=== PATIENT | female | born 1970 | race American Indian/Alaskan Native ===

== ENCOUNTER 2016-12-19 07:45 | Day surgery (SDC) | payer OTHER ==
[~2016-12-19 07:45] MED LIST: Clindamycin Phosphate 600 MG in Sodium Chloride 0.9% 100 ML IV ONE; Lactated Ringers 1,000 ML IV SCH; Sodium Chloride 0.9% 10 ML Syringe FLUSH PRN
[2016-12-19] MEDS ORDERED: Ondansetron 4 MG/2 ML SDV IV ONE (07:46)
[2016-12-19] MEDS ORDERED: Dexamethasone 4 MG/ML SDV IV ONE (07:46)
[2016-12-19] MEDS ORDERED: Propofol 200 MG/20 ML SDV IV ONE (07:46)
[2016-12-19] MEDS ORDERED: Lidocaine 1% 30 ML SDV INJECT ONE ×3 (07:46→10:31)
[2016-12-19] MEDS ORDERED: Lidocaine 1% 10 ML MDV INJECT ONE (07:46)
[2016-12-19] MEDS ORDERED: ePHEDrine 50 MG/ML SDV IV ONE (07:46)
[2016-12-19] MEDS ORDERED: fentaNYL 100 MCG/2 ML SDV IV ONE (07:46)
[2016-12-19] MEDS ORDERED: Bupivacaine 0.5% 10 ML SDV INJECT ONE ×3 (07:46→10:31)
[2016-12-19] MEDS ORDERED: Midazolam 1 MG/ML 2 ML SDV IV ONE (07:46)
[2016-12-19] MEDS ORDERED: Ketorolac 30 MG/ML SDV IVPUSH ONE (07:46)
[2016-12-19] MEDS ORDERED: Sodium Chloride 0.9% 10 ML Syringe FLUSH PRN (08:00)
[2016-12-19] MEDS ORDERED: Lidocaine 1% 30 ML SDV ONE (08:10)
[2016-12-19] MEDS ORDERED: Bupivacaine 0.5% 10 ML SDV ONE (08:10)
[2016-12-19] MEDS ORDERED: Sodium Chloride 0.9% 100 ML ONE (08:42)
[2016-12-19] MEDS ORDERED: Clindamycin Phosphate 600 MG/4 ML SDV ONE (08:42)
[2016-12-19] MEDS ORDERED: Midazolam 1 MG/ML 2 ML SDV ONE (08:55)
[2016-12-19] MEDS ORDERED: fentaNYL 100 MCG/2 ML SDV ONE (08:55)
[2016-12-19] MEDS ORDERED: Ondansetron 4 MG/2 ML SDV ONE (08:55)
[2016-12-19] MEDS ORDERED: Propofol 200 MG/20 ML SDV ONE (08:56)
[2016-12-19] MEDS ORDERED: Dexamethasone 4 MG/ML SDV ONE (08:56)
[2016-12-19] MEDS ORDERED: Lidocaine 1% 50 MG/5 ML Syringe ONE (08:56)
[2016-12-19] MEDS ORDERED: Ketorolac 30 MG/ML SDV ONE (08:56)
[2016-12-19] MEDS ORDERED: HYDROmorphone 1 MG/ML Syringe IVPUSH ONE (11:05)
[2016-12-19] MEDS ORDERED: Acetaminophen/oxyCODONE 325-5 MG Tab PO PRN (11:09)
--- NOTE | 2016-12-19 11:12 | PCM.OPNOTE ---
- General Post-Op/Procedure Note Date of Surgery/Procedure: 12/19/16 Operative Procedure(s): left foot chevron bunionectomy Pre Op Diagnosis: left foot painful bunion Post-Op Diagnosis: benito Anesthesia Technique: Local, MAC Primary Surgeon: Cira Guillen Anesthesia Provider: Dominic Smith EBL in mLs: 5 Complications: none Condition: Good Free Text/Narrative:: Pt tolerated procedure well and was transported to pacu with vss and vascular status intact to left foot. TT 56 mins. gisele 3.0 cannulated screws placed.
[2016-12-19 12:26] VITALS: BP 137/79
--- NOTE | 2016-12-19 20:53 | OR ---
DATE: 12/19/2016 PREOPERATIVE DIAGNOSIS: Left foot painful bunion. POSTOPERATIVE DIAGNOSIS: Left foot painful bunion. PROCEDURE PERFORMED: Left foot first metatarsal osteotomy/bunionectomy. ANESTHESIA: Local MAC with preoperative local block of 10 mL of 1:1 mixture of 1% lidocaine plain and 0.5% Marcaine plain. ESTIMATED BLOOD LOSS: Minimal. SPECIMEN: None. COMPLICATIONS: None. INDICATIONS: Cait is a 46-year-old female, who presents with painful bunions, worse on the left foot. She has been dealing with the painful bunions for many years now and they are gradually worsening. I have seen her in the past and we have tried wider shoes, activity modifications, bunion splints and padding along with toe spacers with no relief. She has also tried some inserts. She was also seen by a ends down checker out of [facility], who referred her back to me for surgical correction. X-rays from [facility] sent on a disc here reveal intermetatarsal angle of the left foot of 9 degrees. There is some component of metatarsus adductus present. There is a short 1st ray compared to the 2nd and 3rd. The patient voiced good understanding of the proposed procedure and possible complications, and elects to have the surgery at this time. DESCRIPTION OF THE PROCEDURE: The patient was taken to the operating room, lying in supine position. After adequate anesthesia induction as described above, the left foot was prepped and draped in the usual sterile fashion. A pneumatic ankle tourniquet was inflated to 225 mmHg. Attention was then directed to the dorsum of the 1st metatarsophalangeal joint, where an approximately 6 cm linear incision was made. Sharp and blunt dissection was performed down to the level of the joint capsule with care to gently retract all neurovascular bundles. An inverted L capsulotomy was made and the capsule reflected to expose the distal 1st metatarsal. A hypertrophic medial eminence was noted at this time and was resected with sagittal saw. There was also noted to be a small amount of articular defect at the medial and plantar aspect, mostly along the sesamoid groove. These were drilled with a 0.062 inch K-wire. The remainder of the metatarsophalangeal joint appeared healthy without any deep defect. Blunt dissection was performed in the 1st interspace to the level of the fibular sesamoid. The adductor hallucis tendon was transected from its attachment at the fibular sesamoid. A sagittal saw was used to make a chevron- type osteotomy, angulated in a fashion that would allow plantar displacement and lengthening of the 1st metatarsal upon lateral transposition of the capital fragment. The capital fragment was then transposed laterally approximately 6 mm and impacted to bring the hallux in a near rectus alignment. K-wires from the 3.0 Cocoa cannulated screw set were used as temporary fixation. Two partially threaded cannulated screws of 3.0 were then placed across the osteotomy site. This temporary fixation was removed. The osteotomy site was noted to be stable with axial valgus and varus force applied and with fluid range of motion of 1st MTPJ. Throughout this procedure, fluoroscopy was used to verify adequate reduction of the deformity along with proper screw fixation. A medial capsulorrhaphy was performed. The area was then irrigated with copious amounts of sterile saline. Capsular closure was completed with 2-0 Vicryl, deep closure was completed with 3-0 Vicryl, and skin closure was completed with 4-0 nylon. The hallux was noted to be in near rectus alignment at this time. The area was dressed with Xeroform to the incision site, fluffs, Kerlix, and an Nestor wrap. The patient tolerated the procedure and anesthesia well and left the operating room for recovery with vital signs stable in a good condition with vascular status intact to the left foot as noted by immediate hyperemia to all digits upon deflation of the tourniquet. Total tourniquet time was 56 minutes. The patient was discharged to home when she met hospital discharge requirements. [facility] /[id number]
== END 2016-12-19 12:55 | disposition home or self-care (01) ==
LOC: DL.SDS 07:45
PROVIDERS: ATTEND Podiatrist
DX: M21.612 Bunion of left foot (principal); I10 Essential (primary) hypertension; K21.9 Gastro-esophageal reflux disease without esophagitis; G47.30 Sleep apnea, unspecified; Z88.0 Allergy status to penicillin; Z88.8 Allergy status to other drugs, medicaments and biological substances; Z79.899 Other long term (current) drug therapy; F17.210 Nicotine dependence, cigarettes, uncomplicated
CPT/HCPCS: 28296; C1713; J1100; J1170; J1885; J2250; J2405; J2704; J3010; J7050; J7120; A9270-GY; S0077

== ENCOUNTER 2017-06-20 17:03 | Emergency (ER) | payer OTHER ==
[2017-06-20 18:07] LABS: CHLORIDE,CL 108 mmol/L (101-111); SODIUM,NA 137 mmol/L (135-145)
[2017-06-20] MEDS ORDERED: cloNIDine 0.1 MG Tab PO ONE ×2 (19:32→20:25)
--- NOTE | 2017-06-20 19:39 | EDM.PDOC ---
ED HPI GENERAL MEDICAL PROBLEM - General Chief Complaint: Chest Pain Stated Complaint: CHEST PAIN. in by amb Time Seen by Provider: 06/20/17 19:34 Source of Information: Reports: Patient History Limitations: Reports: No Limitations - History of Present Illness INITIAL COMMENTS - FREE TEXT/NARRATIVE: states been having weakness, dizziness and tired all the time went to clinic had w/u for heart & stroke but all were negative. so came here. admits to not taking her BP Rx daily but only 2 to 3 times a week. also admits to drinking high caffeine drinks too. been under stress with son getting chemo for colon cancer and thinks his chemo might be affecting her since she is around him all the time. denies CP/SOB. - Related Data Allergies Allergy/AdvReac Type Severity Reaction Status Date / Time aspirin Allergy Facial Verified 06/20/17 17:16 Swelling cefazolin sodium [From Ancef] Allergy Hives Verified 06/20/17 17:16 codeine Allergy Facial Verified 06/20/17 17:16 Swelling penicillin Allergy Blisters Verified 06/20/17 17:16 Home Meds: Home Meds Acetaminophen [Tylenol] 650 mg PO Q6HR PRN 10/03/14 [History] Ibuprofen [Motrin] 800 mg PO TID PRN 10/03/14 [History] Famotidine [Pepcid] 20 mg PO ASDIRECTED PRN 10/24/15 [History] Losartan [Cozaar] 100 mg PO DAILY 10/24/15 [History] Naproxen [Naprosyn] 500 mg PO Q12HR 06/20/17 [History] Past Medical History HEENT History: Reports: None, Impaired Vision Other HEENT History: wears glasses Cardiovascular History: Reports: Hypertension Respiratory History: Reports: Bronchitis, Recurrent Gastrointestinal History: Reports: Cholelithiasis, GERD Genitourinary History: Reports: None [facility] PHYSICIAN History: Reports: Musculoskeletal History: Reports: Arthritis, Osteoarthritis Neurological History: Reports: None Psychiatric History: Reports: None Endocrine/Metabolic History: Reports: None Hematologic History: Reports: None Immunologic History: Reports: None Oncologic (Cancer) History: Reports: None Dermatologic History: Reports: Eczema - Infectious Disease History Infectious Disease History: Reports: Chicken Pox, Other (See Below) Other Infectious Disease History: PLEURISY - Past Surgical History HEENT Surgical History: Reports: None Cardiovascular Surgical History: Reports: None Respiratory Surgical History: Reports: None GI Surgical History: Reports: Cholecystectomy Female Surgical History: Reports: Hysterectomy Musculoskeletal Surgical History: Reports: Arthroscopic Knee, Other (See Below) Other Musculoskeletal Surgeries/Procedures:: bilateral knee arthroscope Social & Family History - Family History Family Medical History: Noncontributory - Tobacco Use Smoking Status *Q: Current Every Day Smoker Years of Tobacco use: 20 Packs/Tins Daily: 0.5 Second Hand Smoke Exposure: No - Caffeine Use Caffeine Use: Reports: Coffee, Soda, Tea Caffeine Use Comment: rare - Recreational Drug Use Recreational Drug Use: No Drug Use in Last 12 Months: No Recreational Drug Type: Reports: Marijuana/Hashish Recreational Drug Use Frequency: Socially ED ROS GENERAL - Review of Systems Review Of Systems: ROS reveals no pertinent complaints other than HPI. ED EXAM, GENERAL - Physical Exam Exam: See Below Exam Limited By: No Limitations General Appearance: Alert, WD/WN, Anxious, Mild Distress, Other (upset) Ears: Hearing Grossly Normal Throat/Mouth: Normal Voice, No Airway Compromise Head: Atraumatic Neck: Non-Tender, Full Range of Motion Respiratory/Chest: No Respiratory Distress Cardiovascular: Regular Rate, Rhythm GI/Abdominal: Soft, Non-Tender Neurological: Alert, Oriented, Normal Cognition, Normal Gait, No Motor/Sensory Deficits Psychiatric: Anxious Skin Exam: Warm, Dry, Normal Color Lymphatic: No Adenopathy Course - Vital Signs Last Recorded V/S: Last Vital Signs Temp 37.0 C 06/20/17 17:03 Pulse 68 06/20/17 17:03 Resp 16 06/20/17 17:03 BP 170/89 H 06/20/17 20:39 Pulse Ox 98 06/20/17 17:03 - Orders/Labs/Meds Orders: Active Orders 24 hr Category Date Time Status EKG Documentation Completion [RC] URGENT Care 06/20/17 17:33 Active Labs: Laboratory Tests 06/20/17 06/20/17 Range/Units 17:40 17:40 WBC 8.2 (5.0-10.0) 10^3/uL RBC 4.53 (4.2-5.4) 10^6/uL Hgb 13.6 (12.0-16.0) g/dL Hct 39.6 (37.0-47.0) % MCV 87.4 (80-100) fL MCH 30.0 (27.0-34.0) pg MCHC 34.3 (33.0-35.0) g/dL Plt Count 282 (150-450) 10^3/uL Neut % (Auto) 60.0 (42.2-75.2) % Lymph % (Auto) 30.8 (20.5-50.1) % [place] % (Auto) 7.6 (2-8) % Eos % (Auto) 1.1 (1.0-3.0) % Baso % (Auto) 0.5 (0.0-1.0) % Sodium 137 (135-145) mmol/L Potassium 3.4 L (3.6-5.0) mmol/L Chloride 108 (101-111) mmol/L Carbon Dioxide 22.0 (21.0-31.0) mmol/L Anion Gap 10.4 BUN 13 (7-18) mg/dL Creatinine 0.6 (0.6-1.3) mg/dL Est Cr Clr Drug Dosing 106.18 mL/min Estimated GFR (MDRD) > 60 BUN/Creatinine Ratio 21.66 Glucose 101 (74-105) mg/dL Calcium 8.6 (8.4-10.2) mg/dl Total Bilirubin 0.6 (0.2-1.0) mg/dL AST 20 (10-42) IU/L ALT 20 (10-60) IU/L Alkaline Phosphatase 26 L (42-121) IU/L Troponin I < 0.02 (0.00-0.02) ng/ml Total Protein 6.7 (6.7-8.2) g/dl Albumin 3.8 (3.2-5.5) g/dl Globulin 2.9 Albumin/Globulin Ratio 1.31 Meds: Medications Discontinued Medications Generic Name Dose Route Start Last Admin Trade Name Freq PRN Reason Stop Dose Admin Clonidine HCl 0.1 mg 06/20/17 19:32 06/20/17 19:40 Catapres PO 06/20/17 19:33 0.1 mg ONETIME ONE Administration Clonidine HCl 0.1 mg 06/20/17 20:25 06/20/17 20:39 Catapres PO 06/20/17 20:26 0.1 mg ONETIME ONE Administration - Re-Assessments/Exams Free Text/Narrative Re-Assessment/Exam: 06/20/17 21:00 re-exam; s/p catapress = much better with decrease in BP. Departure - Departure Time of Disposition: 21:02 Disposition: Home, Self-Care 01 Condition: Good (hypertension) Clinical Impression: Hypertension Qualifiers: Hypertension type: unspecified Qualified Code(s): I10 - Essential (primary) hypertension - Discharge Information Instructions: Hypertension, [id number] Forms: ED Department Discharge Additional Instructions: 1) take BP meds as directed 2) avoid caffeine drinks 3) recheck as needed
[2017-06-20 20:39] VITALS: BP 170/89
--- NOTE | 2017-06-24 13:36 | EKG ---
06/20/2017- GRISELDA THOMPSON - FINDINGS: EKG, per my reading, shows sinus rhythm. [facility] /[id number]
== END 2017-06-20 21:15 | disposition home or self-care (01) ==
LOC: DL.ED 17:03
DX: I10 Essential (primary) hypertension (principal); Z88.5 Allergy status to narcotic agent; Z88.0 Allergy status to penicillin; Z79.899 Other long term (current) drug therapy; F17.210 Nicotine dependence, cigarettes, uncomplicated
CPT/HCPCS: 36415; 71045; 80053; 84484; 85025; 93005; 99285; A9270

== ENCOUNTER 2018-06-14 15:09 | Emergency (ER) | payer BC, OTHER ==
[2018-06-14 15:24] VITALS: BP 142/73; PULSE 76
--- NOTE | 2018-06-14 15:46 | EDM.PDOC ---
ED HPI GENERAL MEDICAL PROBLEM - General Chief Complaint: Flank Pain Stated Complaint: BODY IS IN PAIN EVERYWHERE [id number] Time Seen by Provider: 06/14/18 15:46 Source of Information: Reports: Patient, Family, RN, RN Notes Reviewed History Limitations: Reports: No Limitations - History of Present Illness INITIAL COMMENTS - FREE TEXT/NARRATIVE: Pt to ER with c/o pain in the left flank area. She states she woke up with the pain this morning around 0800. She states the pain is getting worse. Patient states yesterday she was carrying chairs, and she lifts her granddaughter frequently that is about 27 pounds. She denies any trauma. She states she did sleep in a recliner last night. Denies fever, chills, N/V/D, urinary sx. Onset: Today, Sudden Left Flank Pain Score (Numeric/FACES): 9 - Related Data Allergies Allergy/AdvReac Type Severity Reaction Status Date / Time aspirin Allergy Facial Verified 06/14/18 15:24 Swelling cefazolin sodium [From Ancef] Allergy Hives Verified 06/14/18 15:24 codeine Allergy Facial Verified 06/14/18 15:24 Swelling duloxetine Allergy Rash Verified 06/14/18 15:24 penicillin Allergy Blisters Verified 06/14/18 15:24 Home Meds: Home Meds Acetaminophen [Tylenol] 650 mg PO Q6HR PRN 10/03/14 [History] Ibuprofen [Motrin] 400 mg PO TID PRN 10/03/14 [History] Famotidine [Pepcid] 20 mg PO ASDIRECTED PRN 10/24/15 [History] Losartan [Cozaar] 100 mg PO DAILY 10/24/15 [History] amLODIPine Besylate [Amlodipine Besylate] 10 mg PO DAILY 10/27/17 [History] Docusate Sodium [Colace] 100 mg PO BID PRN 10/28/17 [History] Lidocaine 5% [Lidoderm 5%] 1 patch TRDERM Q12HR PRN 10/28/17 [History] QUEtiapine Fumarate [Quetiapine Fumarate] 100 mg PO ASDIRECTED 06/14/18 [History ] hydrOXYzine HCl [hydrOXYzine] 50 mg PO ASDIRECTED 06/14/18 [History] Past Medical History HEENT History: Reports: None, Impaired Vision Other HEENT History: wears glasses Cardiovascular History: Reports: Hypertension Respiratory History: Reports: Bronchitis, Recurrent Gastrointestinal History: Reports: Cholelithiasis, GERD Genitourinary History: Reports: None [employer] History: Reports: Musculoskeletal History: Reports: Arthritis, Osteoarthritis Neurological History: Reports: None Psychiatric History: Reports: None Endocrine/Metabolic History: Reports: None Hematologic History: Reports: None Immunologic History: Reports: None Oncologic (Cancer) History: Reports: None Dermatologic History: Reports: Eczema - Infectious Disease History Infectious Disease History: Reports: Chicken Pox, Other (See Below) Other Infectious Disease History: PLEURISY - Past Surgical History HEENT Surgical History: Reports: None Cardiovascular Surgical History: Reports: None Respiratory Surgical History: Reports: None GI Surgical History: Reports: Cholecystectomy Female Surgical History: Reports: Hysterectomy Musculoskeletal Surgical History: Reports: Arthroscopic Knee, Knee Replacement, Other (See Below) Other Musculoskeletal Surgeries/Procedures:: bilateral knee arthroscope Social & Family History - Family History Family Medical History: Noncontributory - Tobacco Use Smoking Status *Q: Current Every Day Smoker Years of Tobacco use: 33 Packs/Tins Daily: 0.5 Second Hand Smoke Exposure: No - Caffeine Use Caffeine Use: Reports: Coffee, Soda Caffeine Use Comment: rare - Recreational Drug Use Recreational Drug Type: Reports: Marijuana/Hashish Other Recreational Drug Type: smoked thia AM ED ROS GENERAL - Review of Systems Review Of Systems: ROS reveals no pertinent complaints other than HPI. ED EXAM, GI/ABD - Physical Exam Exam: See Below Exam Limited By: No Limitations General Appearance: Alert, WD/WN, Moderate Distress Eyes: Bilateral: Normal Appearance, EOMI Ears: Normal External Exam, Hearing Grossly Normal Nose: Normal Inspection Throat/Mouth: Normal Inspection, Normal Voice, No Airway Compromise Head: Atraumatic, Normocephalic Neck: Normal Inspection, Supple, Non-Tender, Full Range of Motion Respiratory/Chest: No Respiratory Distress, Lungs Clear (left lung), No Accessory Muscle Use, Chest Non-Tender, Crackles (Right base) Cardiovascular: Normal Peripheral Pulses, Regular Rate, Rhythm, No Edema, No Gallop, No JVD, No Murmur, No Rub GI/Abdominal Exam: Normal Bowel Sounds, Soft, Non-Tender, No Organomegaly, No Distention, No Abnormal Bruit, No Mass, Pelvis Stable (Female) Exam: Deferred Rectal (Female) Exam: Deferred Back Exam: Normal Inspection, CVA Tenderness (L), Decreased Range of Motion Extremities: Normal Inspection, Normal Range of Motion, Non-Tender, No Pedal Edema, Normal Capillary Refill Neurological: Alert, Oriented, CN II-XII Intact, Normal Cognition, Normal Gait, Normal Reflexes, No Motor/Sensory Deficits Psychiatric: Normal Affect, Normal Mood Skin Exam: Warm, Dry, Intact, Normal Color, No Rash Lymphatic: No Adenopathy Course - Vital Signs Last Recorded V/S: Last Vital Signs Temp 98 F 06/14/18 15:18 Pulse 76 06/14/18 15:18 Resp 16 06/14/18 15:18 BP 142/73 H 06/14/18 15:18 Pulse Ox 99 06/14/18 15:18 - Orders/Labs/Meds Labs: Laboratory Tests 06/14/18 06/14/18 06/14/18 Range/Units 16:19 16:19 16:30 WBC 10.8 H (5.0-10.0) 10^3/uL RBC 4.62 (4.2-5.4) 10^6/uL Hgb 13.7 (12.0-16.0) g/dL Hct 40.5 (37.0-47.0) % MCV 87.7 (80-100) fL MCH 29.7 (27.0-34.0) pg MCHC 33.8 (33.0-35.0) g/dL Plt Count 267 (150-450) 10^3/uL Neut % (Auto) 66.9 (42.2-75.2) % Lymph % (Auto) 22.8 (20.5-50.1) % Hall % (Auto) 9.4 H (2-8) % Eos % (Auto) 0.7 L (1.0-3.0) % Baso % (Auto) 0.2 (0.0-1.0) % Sodium (135-145) mmol/L Potassium (3.6-5.0) mmol/L Chloride (101-111) mmol/L Carbon Dioxide (21.0-31.0) mmol/L Anion Gap BUN (7-18) mg/dL Creatinine (0.6-1.3) mg/dL Est Cr Clr Drug Dosing mL/min Estimated GFR (MDRD) BUN/Creatinine Ratio Glucose (74-105) mg/dL Calcium (8.4-10.2) mg/dl Total Bilirubin (0.2-1.0) mg/dL AST (10-42) IU/L ALT (10-60) IU/L Alkaline Phosphatase (42-121) IU/L Total Protein (6.7-8.2) g/dl Albumin (3.2-5.5) g/dl Globulin Albumin/Globulin Ratio Urine Color Dark yellow (YELLOW) Urine Appearance Cloudy (CLEAR) Urine pH 5.5 (5.0-9.0) Ur Specific [place] 1.025 (1.005-1.030) Urine Protein Negative (NEGATIVE) Urine Glucose (UA) Negative (NEGATIVE) Urine Ketones Negative (NEGATIVE) Urine Occult Blood Small H (NEGATIVE) Urine Nitrite Negative (NEGATIVE) Urine Bilirubin Negative (NEGATIVE) Urine Urobilinogen 0.2 (0.2-1.0) mg/dL Ur Leukocyte Esterase Negative (NEGATIVE) Urine RBC 5-10 H /HPF Urine WBC 0-5 (0-5/HPF) /HPF Ur Epithelial Cells Moderate H /HPF Amorphous Sediment Rare (0/HPF) /HPF Urine Bacteria Rare (0-FEW/HPF) /HPF Urine Mucus Many H /LPF Urine Opiates Screen Positive H (NEGATIVE) Ur Oxycodone Screen Positive H (NEGATIVE) Urine Methadone Screen Negative (NEGATIVE) Ur Barbiturates Screen Negative (NEGATIVE) U Tricyclic Antidepress Negative (NEGATIVE) Ur Phencyclidine Scrn Negative (NEGATIVE) Ur Amphetamine Screen Negative (NEGATIVE) U Methamphetamines Scrn Negative (NEGATIVE) Urine MDMA Screen Negative (NEGATIVE) U Benzodiazepines Scrn Negative (NEGATIVE) Urine Cocaine Screen Negative (NEGATIVE) U Marijuana (THC) Screen Positive H (NEGATIVE) 06/14/18 Range/Units 16:30 WBC (5.0-10.0) 10^3/uL RBC (4.2-5.4) 10^6/uL Hgb (12.0-16.0) g/dL Hct (37.0-47.0) % MCV (80-100) fL MCH (27.0-34.0) pg MCHC (33.0-35.0) g/dL Plt Count (150-450) 10^3/uL Neut % (Auto) (42.2-75.2) % Lymph % (Auto) (20.5-50.1) % Hall % (Auto) (2-8) % Eos % (Auto) (1.0-3.0) % Baso % (Auto) (0.0-1.0) % Sodium 135 (135-145) mmol/L Potassium 3.4 L (3.6-5.0) mmol/L Chloride 102 (101-111) mmol/L Carbon Dioxide 25.0 (21.0-31.0) mmol/L Anion Gap 11.4 BUN 8 (7-18) mg/dL Creatinine 0.6 (0.6-1.3) mg/dL Est Cr Clr Drug Dosing 105.01 mL/min Estimated GFR (MDRD) > 60 BUN/Creatinine Ratio 13.33 Glucose 94 (74-105) mg/dL Calcium 8.3 L (8.4-10.2) mg/dl Total Bilirubin 1.0 (0.2-1.0) mg/dL AST 15 (10-42) IU/L ALT 10 (10-60) IU/L Alkaline Phosphatase 25 L (42-121) IU/L Total Protein 6.3 L (6.7-8.2) g/dl Albumin 3.4 (3.2-5.5) g/dl Globulin 2.9 Albumin/Globulin Ratio 1.17 Urine Color (YELLOW) Urine Appearance (CLEAR) Urine pH (5.0-9.0) Ur Specific [place] (1.005-1.030) Urine Protein (NEGATIVE) Urine Glucose (UA) (NEGATIVE) Urine Ketones (NEGATIVE) Urine Occult Blood (NEGATIVE) Urine Nitrite (NEGATIVE) Urine Bilirubin (NEGATIVE) Urine Urobilinogen (0.2-1.0) mg/dL Ur Leukocyte Esterase (NEGATIVE) Urine RBC /HPF Urine WBC (0-5/HPF) /HPF Ur Epithelial Cells /HPF Amorphous Sediment (0/HPF) /HPF Urine Bacteria (0-FEW/HPF) /HPF Urine Mucus /LPF Urine Opiates Screen (NEGATIVE) Ur Oxycodone Screen (NEGATIVE) Urine Methadone Screen (NEGATIVE) Ur Barbiturates Screen (NEGATIVE) U Tricyclic Antidepress (NEGATIVE) Ur Phencyclidine Scrn (NEGATIVE) Ur Amphetamine Screen (NEGATIVE) U Methamphetamines Scrn (NEGATIVE) Urine MDMA Screen (NEGATIVE) U Benzodiazepines Scrn (NEGATIVE) Urine Cocaine Screen (NEGATIVE) U Marijuana (THC) Screen (NEGATIVE) Meds: Medications Discontinued Medications Generic Name Dose Route Start Last Admin Trade Name Magnolia PRN Reason Stop Dose Admin Orphenadrine Citrate 60 mg 06/14/18 17:30 06/14/18 17:29 Norflex IM 60 mg Q12H EVA Administration Departure - Departure Time of Disposition: 17:30 Disposition: Home, Self-Care 01 Condition: Fair Clinical Impression: Muscle strain - Discharge Information *PRESCRIPTION DRUG MONITORING PROGRAM REVIEWED*: No *COPY OF PRESCRIPTION DRUG MONITORING REPORT IN PATIENT DEBBI: No Instructions: RICE for Routine Care of Injuries, [id number], Muscle Strain, [id number], Flank Pain, Adult, [id number] Referrals: Isidro Helton [Primary Care Provider] - Forms: ED Department Discharge Additional Instructions: RX: Flexeril May use Tylenol and/or Ibuprofen as directed for pain May Ice and Heat the area as tolerated Follow up with you primary provider in the clinic if no improvement
[2018-06-14 16:52] LABS: ANION GAP 11.4; CHLORIDE,CL 102 mmol/L (101-111); SODIUM,NA 135 mmol/L (135-145)
== END 2018-06-14 17:43 | disposition home or self-care (01) ==
LOC: DL.ED 15:09
DX: S39.011A Strain of muscle, fascia and tendon of abdomen, initial encounter (principal); F17.210 Nicotine dependence, cigarettes, uncomplicated; Z88.8 Allergy status to other drugs, medicaments and biological substances; Z88.5 Allergy status to narcotic agent; Z88.0 Allergy status to penicillin; X58.XXXA Exposure to other specified factors, initial encounter
CPT/HCPCS: 36415; 80053; 80305; 81001; 85025; 96372; 99284; J2360

== ENCOUNTER 2023-06-21 20:17 | Emergency (ER) | payer BC, MEDICAID ==
[2023-06-21 21:27] VITALS: BP 153/96; PULSE 78
[2023-06-21] MEDS ORDERED: Naloxone 2 MG/2 ML Syringe IVPUSH PRN (22:23)
[2023-06-21] MEDS: fentaNYL 100 MCG/2 ML SDV IVPUSH ONE ×3 (22:33→23:41)
[2023-06-21] MEDS: Midazolam 1 MG/ML 2 ML SDV IVPUSH ONE (23:34)
== END 2023-06-22 00:31 | disposition home or self-care (01) ==
LOC: DL.ED 20:17
DX: S43.005A Unspecified dislocation of left shoulder joint, initial encounter (principal); T84.028A Dislocation of other internal joint prosthesis, initial encounter; Z88.0 Allergy status to penicillin; Z88.1 Allergy status to other antibiotic agents; Z88.8 Allergy status to other drugs, medicaments and biological substances; Z88.5 Allergy status to narcotic agent; I10 Essential (primary) hypertension; K21.9 Gastro-esophageal reflux disease without esophagitis; Z79.899 Other long term (current) drug therapy; X50.9XXA Other and unspecified overexertion or strenuous movements or postures, initial encounter
CPT/HCPCS: 23650; 23655; 73020-LT; 73030-LT; 99283; 99283-25; J2250; J3010

== ENCOUNTER 2024-01-31 23:28 | Emergency (ER) | payer MEDICAID ==
[2024-01-31] MEDS: Albuterol/Ipratropium 3.0-0.5 MG/3 ML Neb Soln NEB ONE (23:40)
[2024-01-31] MEDS: LORazepam 2 MG/ML SDV IVPUSH ONE (23:54)
[2024-01-31 23:57] LABS: BASOPHILS PERCENT AUTO 0.4 % (0.0-1.0); EOSINOPHILS PERCENT AUTO 1.2 % (1.0-3.0); HEMATOCRIT 41.1 % (37.0-47.0); LYMPHOCYTES PERCENT AUTO 38.5 % (20.5-50.1); MEAN CORPUSCULAR HEMOGLOBIN 29.7 pg (27.0-34.0); MEAN CORPUSCULAR HGB CONC 34.1 g/dL (33.0-35.0); MEAN CORPUSCULAR VOLUME 87.3 fL (80-100); NEUTROPHILS PERCENT AUTO 53.9 % (42.2-75.2); PLATELET COUNT,PLT 335 10^3/uL (150-450); RED BLOOD CELL COUNT 4.71 10^6/uL (4.2-5.4); WHITE BLOOD CELL COUNT,WBC 6.8 10^3/uL (5.0-10.0)
[2024-02-01 00:26] LABS: A/G RATIO 1.1; ALBUMIN 3.5 g/dL (3.4-5.0); ANION GAP 16.6 mEq/L (7-13); BILIRUBIN TOTAL 1.1 mg/dL (0.2-1.0); BUN/CREATININE RATIO 8.3 (No establ ref range); CALCIUM 8.5 mg/dL (8.5-10.1); CREATININE 0.84 mg/dL (0.55-1.02); EST CRCL DRUG DOSING (CG) 70.84 mL/min; POTASSIUM,K 3.6 mmol/L (3.5-5.1); PROTEIN TOTAL,TP 6.8 g/dL (6.4-8.2)
[2024-02-01 00:48] LABS: PROTHROMBIN TIME 10.1 SEC (9.0-12.0)
[2024-02-01] MEDS: Iopamidol 755 Mg/ML 100 ML Bottle IVPUSH ONE (00:59)
[2024-02-01] MEDS: Sodium Chloride 0.9% 500 ML IV ONE (02:31)
[2024-02-01 03:04] VITALS: BP 124/69; PULSE 97
== END 2024-02-01 03:15 | disposition home or self-care (01) ==
LOC: DL.ED 23:28
DX: R06.02 Shortness of breath (principal); R79.89 Other specified abnormal findings of blood chemistry; I10 Essential (primary) hypertension; Z88.0 Allergy status to penicillin; Z88.8 Allergy status to other drugs, medicaments and biological substances; Z79.899 Other long term (current) drug therapy; Z90.49 Acquired absence of other specified parts of digestive tract; Z90.710 Acquired absence of both cervix and uterus
CPT/HCPCS: 36415; 71046; 71275; 80053; 83690; 83880; 84484; 85025; 85379; 85610; 87428; 93005; 96361; 96374; 99285; J2060; J7040; Q9967; 93010; 99284; J7620-GY

== ENCOUNTER 2024-02-06 22:09 | Emergency (ER) | payer MEDICAID ==
[2024-02-06] MEDS: hydrOXYzine HCl 25 MG Tab PO ONE (23:16)
[2024-02-06 23:42] VITALS: BP 142/89; PULSE 110
== END 2024-02-06 23:51 | disposition home or self-care (01) ==
LOC: DL.ED 22:09
DX: F41.9 Anxiety disorder, unspecified (principal); R06.02 Shortness of breath; N95.1 Menopausal and female climacteric states; I10 Essential (primary) hypertension; F17.210 Nicotine dependence, cigarettes, uncomplicated; Z90.49 Acquired absence of other specified parts of digestive tract; Z90.710 Acquired absence of both cervix and uterus; Z96.659 Presence of unspecified artificial knee joint; Z96.619 Presence of unspecified artificial shoulder joint; Z88.0 Allergy status to penicillin; Z88.5 Allergy status to narcotic agent; Z88.6 Allergy status to analgesic agent; Z88.8 Allergy status to other drugs, medicaments and biological substances; Z79.899 Other long term (current) drug therapy
CPT/HCPCS: 99284; A9270-GY

== ENCOUNTER 2024-02-10 10:51 | Emergency (ER) | payer MEDICAID ==
[2024-02-10 11:51] LABS: BASOPHILS PERCENT AUTO 0.7 % (0.0-1.0); EOSINOPHILS PERCENT AUTO 1.5 % (1.0-3.0); HEMATOCRIT 37.8 % (37.0-47.0); HEMOGLOBIN 12.6 g/dL (12.0-16.0); LYMPHOCYTES PERCENT AUTO 25.1 % (20.5-50.1); MEAN CORPUSCULAR HEMOGLOBIN 29.9 pg (27.0-34.0); MEAN CORPUSCULAR HGB CONC 33.3 g/dL (33.0-35.0); MEAN CORPUSCULAR VOLUME 89.6 fL (80-100); MONOCYTES PERCENT AUTO 7.7 % (2-8); PLATELET COUNT,PLT 323 10^3/uL (150-450); RED BLOOD CELL COUNT 4.22 10^6/uL (4.2-5.4); WHITE BLOOD CELL COUNT,WBC 5.5 10^3/uL (5.0-10.0)
[2024-02-10 12:12] LABS: PROTHROMBIN TIME 10.6 SEC (9.0-12.0); PTT,PARTIAL THROMBOPLSTIN TIME 25.1 SEC (22.0-34.0)
[2024-02-10 12:17] LABS: B-TYPE NATRIURETIC PEPTIDE,BNP 1070 pg/ml (0-100)
[2024-02-10 12:18] LABS: LACTIC ACID 1.3 mmol/L (0.4-2.0)
[2024-02-10 12:22] LABS: A/G RATIO 1.1; ALANINE AMINOTRANSFERASE,ALT 34 U/L (14-59); ALBUMIN 3.4 g/dL (3.4-5.0); ALKALINE PHOSPHATASE 36 U/L (46-116); ANION GAP 14.8 mEq/L (7-13); ASPARTATE AMNIOTRANSFERASE,AST 27 U/L (15-37); BILIRUBIN TOTAL 0.9 mg/dL (0.2-1.0); BLOOD UREA NITROGEN,BUN 9 mg/dL (7-18); C-REACTIVE PROTEIN 0.51 ng/dL (<=0.50); CALCIUM 8.5 mg/dL (8.5-10.1); CARBON DIOXIDE,CO2 25 mmol/L (21-32); CHLORIDE,CL 108 mmol/L (98-107); CREATININE 0.82 mg/dL (0.55-1.02); EST CRCL DRUG DOSING (CG) 72.57 mL/min; ESTIMATED GFR 84 mL/min (>=60); GLUCOSE RANDOM 108 mg/dL (70-99); POTASSIUM,K 3.8 mmol/L (3.5-5.1); PROTEIN TOTAL,TP 6.5 g/dL (6.4-8.2); SODIUM,NA 144 mmol/L (136-145); TSH ULTRASENSITIVE 1.26 uIU/mL (0.36-3.74)
[2024-02-10] MEDS: Aspirin 81 MG Tab.Chew PO ONE (12:45)
[2024-02-10] MEDS: Furosemide 40 MG/4 ML VIAL IVPUSH ONE (12:45)
[2024-02-10] MEDS: Sodium Chloride 0.9% 10 ML Syringe FLUSH PRN (12:46)
[2024-02-10 14:30] VITALS: BP 136/97; PULSE 98
== END 2024-02-10 13:42 ==
LOC: DL.ED 10:51
DX: I11.0 Hypertensive heart disease with heart failure (principal); I50.9 Heart failure, unspecified; J90 Pleural effusion, not elsewhere classified; R79.89 Other specified abnormal findings of blood chemistry; F17.210 Nicotine dependence, cigarettes, uncomplicated; Z90.49 Acquired absence of other specified parts of digestive tract; Z90.710 Acquired absence of both cervix and uterus; Z88.5 Allergy status to narcotic agent; Z88.6 Allergy status to analgesic agent; Z88.0 Allergy status to penicillin; Z88.8 Allergy status to other drugs, medicaments and biological substances; Z79.899 Other long term (current) drug therapy
CPT/HCPCS: 36415; 80053; 83605; 83735; 83880; 84145; 84443; 84484; 85025; 85379; 85610; 85730; 86140; 87040; 87428-QW; 93005; 93010; 96374; 99285; 99285-25; A9270-GY; J1940

== ENCOUNTER 2024-02-22 11:43 | Emergency (ER) | payer MEDICAID ==
[2024-02-22] MEDS ORDERED: Sodium Chloride 0.9% 10 ML Syringe FLUSH PRN (11:46)
[2024-02-22] MEDS: Activated Charcoal/Water Susp 50 GM/240 ML Tube PO ONE (11:54)
[2024-02-22 12:13] LABS: BASOPHILS PERCENT AUTO 0.8 % (0.0-1.0); EOSINOPHILS PERCENT AUTO 1.3 % (1.0-3.0); HEMOGLOBIN 15.1 g/dL (12.0-16.0); LYMPHOCYTES PERCENT AUTO 36.4 % (20.5-50.1); MEAN CORPUSCULAR HEMOGLOBIN 29.7 pg (27.0-34.0); MEAN CORPUSCULAR HGB CONC 33.6 g/dL (33.0-35.0); MEAN CORPUSCULAR VOLUME 88.4 fL (80-100); MONOCYTES PERCENT AUTO 7.7 % (2-8); NEUTROPHILS PERCENT AUTO 53.8 % (42.2-75.2); PLATELET COUNT,PLT 350 10^3/uL (150-450); RED BLOOD CELL COUNT 5.09 10^6/uL (4.2-5.4); WHITE BLOOD CELL COUNT,WBC 5.3 10^3/uL (5.0-10.0)
[2024-02-22 12:39] LABS: A/G RATIO 0.9; ALANINE AMINOTRANSFERASE,ALT 22 U/L (14-59); ALBUMIN 3.7 g/dL (3.4-5.0); ALKALINE PHOSPHATASE 38 U/L (46-116); ANION GAP 17.5 mEq/L (7-13); ASPARTATE AMNIOTRANSFERASE,AST 22 U/L (15-37); BILIRUBIN TOTAL 0.7 mg/dL (0.2-1.0); BLOOD UREA NITROGEN,BUN 13 mg/dL (7-18); BUN/CREATININE RATIO 15.1 (No establ ref range); CALCIUM 8.6 mg/dL (8.5-10.1); CARBON DIOXIDE,CO2 24 mmol/L (21-32); CHLORIDE,CL 104 mmol/L (98-107); CREATININE 0.86 mg/dL (0.55-1.02); GLUCOSE RANDOM 140 mg/dL (70-99); MAGNESIUM 2.1 mg/dL (1.8-2.4); POTASSIUM,K 4.5 mmol/L (3.5-5.1); PROTEIN TOTAL,TP 7.6 g/dL (6.4-8.2); SODIUM,NA 141 mmol/L (136-145)
[2024-02-22 12:49] LABS: ESTIMATED GFR 80 mL/min (>=60); ETHANOL BLOOD MEDICAL < 3 mg/dL (0)
[2024-02-22] MEDS: Sodium Chloride 0.9% 1,000 ML IV ONE ×2 (13:05→13:34)
[2024-02-22 14:52] VITALS: BP 90/60; PULSE 76
== END 2024-02-22 14:49 | disposition home or self-care (01) ==
LOC: DL.ED 11:43
DX: T45.0X2A Poisoning by antiallergic and antiemetic drugs, intentional self-harm, initial encounter (principal); I10 Essential (primary) hypertension; Z90.49 Acquired absence of other specified parts of digestive tract; Z90.710 Acquired absence of both cervix and uterus; Z88.0 Allergy status to penicillin; Z88.5 Allergy status to narcotic agent; Z88.6 Allergy status to analgesic agent; Z88.8 Allergy status to other drugs, medicaments and biological substances; Z79.899 Other long term (current) drug therapy
CPT/HCPCS: 80053; 80307; 83735; 85025; 93005; 96360; 99285; A9270; J7030